=== PATIENT | male | born 1965 | race Caucasian/White ===

== ENCOUNTER 2017-01-27 09:56 | Day surgery (SDC) | payer BC ==
--- NOTE | 2017-01-27 07:33 | History and Physical Report ---
DATE: 01/27/2017. CHIEF COMPLAINT AND HISTORY OF CHIEF COMPLAINT: This patient presents with a history of an intractable postlaminectomy radiculitis. Due to the failure of all therapy, a spinal cord stimulator trial was conducted on January 05, 2017, with 75 to 90 percent pain control. Due to the failure of all therapy and the success of the trial, the patient presents today for implantation of a permanent system. PAST MEDICAL HISTORY: Chronic headaches. PAST SURGICAL HISTORY: Cervical spine fusion, lumbar fusion. EMPLOYMENT STATUS: Off work. MEDICATIONS ON ADMISSION: To be provided. ALLERGIES: Oxycodone. REVIEW OF SYSTEMS: The patient seems appropriate and in no acute distress. The remainder of the systems review shows headaches, degenerative arthritis, depression, difficulty sleeping. SOCIAL HISTORY: Caffeine. FAMILY HISTORY: Noncontributory. PHYSICAL EXAMINATION: General: Height is 6 feet, 6 inches. Weight is 300 pounds. Vital Signs: Not available. HEENT: Within normal limits. Lungs: Clear. Heart: Regular rate and rhythm. Abdomen: Nontender. Musculoskeletal: Examination of the musculoskeletal system shows diffuse tenderness in the lumbar spine. Range of motion causes pain throughout the low back and extending into the extremities. Ambulation: No assistive device utilized. Neurologic: Cranial nerves are intact. IMPRESSION: 1. POSTLUMBAR LAMINECTOMY SYNDROME, ICD-10 CODE M96.1. 2. LUMBAR RADICULITIS, ICD-10 CODE M54.16 AND M54.17. PLAN: Due to the failure of all therapy and the success of the stimulator trial , the patient presents for implantation of a permanent system. The procedure will be performed on an outpatient basis. An overnight stay will be evaluated. The potential risks, side effects, and complications have all been carefully reviewed and discussed including nerve root injury, spinal cord injury, dural puncture, and spinal headache. [employer]'s information with CD ROM was also provided and reviewed. SUSANA TAN D.O. Date & Time JOB NUMBER: [id number] cc: Purvi Valencia
[~2017-01-27 09:56] MED LIST: ACETAMINOPHEN 1,000 MG/100 ML BTL IV ONE; FAMOTIDINE 20MG TABLET PO ONE; MECLIZINE 25 MG TABLET PO ONE; METOCLOPRAMIDE 10 MG TABLET PO ONE; VANCOMYCIN HCL 1,000 MG in 0.9 % SODIUM CHLORIDE 250ML 250 ML IVPB ONE
[2017-01-27] MEDS ORDERED: HYDRALAZINE 20MG/ML VIAL IV ONE (09:57)
[2017-01-27] MEDS ORDERED: PROPOFOL 10 MG/ML VIAL IV ONE (09:57)
[2017-01-27] MEDS ORDERED: LIDOCAINE 1% W/EPI 1:200,000 MPF 30ML SQ ONE (09:57)
[2017-01-27] MEDS ORDERED: MIDAZOLAM HCL 2MG/2ML VIAL IV ONE (09:57)
[2017-01-27] MEDS ORDERED: BUPIVACAINE 0.75% W/EPI MPF 30ML VIAL IVP ONE (09:57)
[2017-01-27] MEDS ORDERED: VANCOMYCIN HCL 500 MG VIAL IV ONE (09:57)
[2017-01-27] MEDS ORDERED: LIDOCAINE 2% MDV (20MG/ML) 20ML VIAL IV ONE (09:57)
[2017-01-27] MEDS ORDERED: FENTANYL PF 100MCG/2ML VIAL IV ONE (09:57)
[2017-01-27] MEDS ORDERED: FLUMAZENIL 1MG/10ML VIAL IV ONE (09:57)
[2017-01-27] MEDS ORDERED: HYDROCODONE/APAP 7.5/325MG TABLET PO PRN ×2 (13:22)
[2017-01-27] MEDS ORDERED: OXYCODONE/APAP 10MG-325MG TABLET PO PRN ×2 (13:22)
--- NOTE | 2017-01-28 07:11 | Operative Note - [place] ---
DATE OF SURGERY: 01/27/2017. PREOPERATIVE DIAGNOSIS: 1. POSTLUMBAR LAMINECTOMY SYNDROME, ICD-10 CODE M96.1. 2. LUMBAR RADICULITIS, ICD-10 CODE M54.16 AND M54.17. POSTOPERATIVE DIAGNOSIS: 1. POSTLUMBAR LAMINECTOMY SYNDROME, ICD-10 CODE M96.1. 2. LUMBAR RADICULITIS, ICD-10 CODE M54.16 AND M54.17. OPERATION: 1. Fluoroscopically guided epidural access, left T10-11 with placement of spinal cord stimulator lead 1, a [employer] Infinion 16 with 6 electrodes positioned left T6. 2. Fluoroscopically guided epidural access, left T11-12 with placement of spinal cord stimulator lead 2, a [employer] Infinion 16 with 6 electrodes positioned right T6. 3. Complex programming of lead 1 over 20 minutes followed by complex programming of lead 2 over 20 minutes. 4. Incision, subcutaneous dissection, and anchoring of lead 1 and lead 2 to supraspinous fascia using a [employer] locking anchor. 5. Incision, subcutaneous dissection, and creation of a subcutaneous pouch at left posterosuperior gluteal margin for placement of generator identified as a [employer] programmable rechargeable. 6. Tunneling between pouches, taking the external portion of lead 1 and lead 2 into the generator pouch, each lead interfaced with the generator. 7. Secured generator to posterior fascia with nonabsorbable suture. Placement of leads into pouches and then closure of both incisions with Vicryl for the fascia and running subcuticular Vicryl for the skin. Dermabond closure. 8. Complex recovery room programming of internal generator for home use, two implanted stimulators for 20 minutes. SURGEON: Susana Rodriguez D.O. ANESTHESIA: Local. ANESTHESIA PROVIDER: Sheila Awad CRNA. INDICATION: This patient presents with a history of an intractable lumbar radiculitis postlaminectomy. Studies show fusion hardware from 2-3 to 5-1. A successful stimulator trial provided 75 to 90 percent pain control. With the failure of all other therapies and the success of the trial, he presents at his request for implantation of a permanent system. PROCEDURE: Intravenous line, vital sign monitoring, and intravenous sedation by Anesthesia. With the patient prone, sterile prep and sterile technique under imaging. Left of the midline the epidural interspace from T10-11 to 11- 12 was infiltrated with local with two separate curved access Epimed needles with loss of resistance into the space. At 10-11 spinal cord stimulator lead 1 , a [employer] Infinion 16 with 6 electrodes was positioned left T6. Epidural access was then performed at T11-12 with a similar technique, and spinal cord stimulator lead 2, also a [employer] Infinion 16 with 6 electrodes, was positioned right T6. Complex programming of lead 1 over 20 minutes, followed by complex programming of lead 2 over 20 minutes. This ultimately resulted in patterns of stimulation across the back and into the legs. The patient indicated we were in all of the areas of pain. He was given the options to implant, continue to program, or remove. He opted to implant. The skin above and below both needles was infiltrated. An incision was made and subcutaneous dissection was conducted to the supraspinous fascia. Each needle was removed, and the leads were anchored to the supraspinous fascia with a [employer] locking anchor and nonabsorbable suture. At the left posterosuperior gluteal margin, our site picked by the patient for the generator , a [employer] programmable rechargeable, the skin was infiltrated. An incision was made and subcutaneous dissection was conducted to form a pouch of suitable size and depth for the generator. A tunneling tool was then used to carry the leads into the generator pouch, and each lead was interfaced to the generator. Antibiotic irrigation and Bovie for hemostasis. The generator was placed in its pouch and secured to the fascia with nonabsorbable suture. The leads were placed into their own pouch. Both incisions were then closed with Vicryl for the fascia and a running subcuticular Vicryl for skin. Dermabond closure approximated the edges of both wounds. He was transported to the recovery room stable, showing no side effects from the procedure or the sedation. When fully awake and alert, complex programming of the generator over 20 minutes in the recovery room was performed, re- establishing stimulation of pain control to all of the appropriate areas. He was instructed on the use of the system and was provided with information on error messaging. He was then prepared for discharge. DISCHARGE INSTRUCTIONS: 1. The sites are to remain clean and dry. No showering or bathing in any way that would disrupt dressings. 2. He will be placed in a lumbar brace which will help maintain restriction and at the same time keep the spine in a neutral position. This will facilitate wound healing and prevent any migration of the leads with inappropriate movements. 3. An antibiotic will be called in with Levaquin 500 mg once a day for 14 days. 4. All other instructions were provided and numbers to contact with problems were given. 5. The office will contact him in the next 24 to 48 hours to set up the evaluation for the sites in five to seven days. SUSANA RODRIGUEZ D.O. Date & Time JOB NUMBER: [id number] cc: Berna Agrawal D.O. [place]
--- NOTE | 2017-01-28 10:17 | RADIOLOGY REPORT ---
EXAM: THORACIC SPINE, SINGLE VIEW HISTORY: POSTOP. TECHNIQUE: A single AP view of the thoracic spine was obtained. Comparison: None. FINDINGS: There are two stimulating wires with the proximal tips projecting over the T7 vertebral body. Post surgical changes of the lumbar spine partially seen. IMPRESSION: STIMULATING WIRES PROJECTING OVER T7. JOB NUMBER: [id number] MTDD
== END 2017-01-27 16:44 | disposition home or self-care (01) ==
LOC: SUR 09:56 → MEDSURG 13:58 → SUR 16:44
PROVIDERS: ATTEND Pain Medicine Interventional Pain Medicine
DX: M96.1 Postlaminectomy syndrome, not elsewhere classified (principal); M54.16 Radiculopathy, lumbar region; M54.17 Radiculopathy, lumbosacral region; M48.061 Spinal stenosis, lumbar region without neurogenic claudication
CPT/HCPCS: 63685; 63650 ×2; 01936; 95972; 84132; 72020; J3370; J3010; J7050